=== PATIENT | female | born 1990 | race Caucasian/White ===

== ENCOUNTER 2021-07-15 16:49 | Emergency (ER) | payer OTHER, SELFPAY ==
--- NOTE | ~2021-07-15 | XR_ITS ---
XR knee RT min 4V DATE: 07/15/2021 17:27 INDICATION: Struck knee on safe at work. Anterior knee pain. TECHNIQUE: 4 views COMPARISON: None FINDINGS: There is particular spurring of the patella and lateral compartment consistent with osteoar thritis. No fracture or dislocation or joint effusion. No periosteal reaction or bone destruction. No radiopaq ue intra-articular loose body or chondrocalcinosis. IMPRESSION: Osteoarthritis Reviewed, dictated and finalized at location A. IMPRESSION: Osteoarthritis
[2021-07-15 17:01] VITALS: BP 122/64; PULSE 96; RESP 18; TEMP 36.7; O2SAT 100
--- NOTE | 2021-07-15 17:30 | ED.LOWEXIN ---
HPI - Extremity Injury (Lower) General Chief Complaint: Extremity Injury, Lower Stated Complaint: Right Knee Pain Time Seen by Provider: 07/15/21 17:29 Source: patient and RN notes reviewed Mode of arrival: ambulatory Limitations: no limitations History of Present Illness HPI Narrative: Patient presents today complaining of right knee pain. States she struck her knee into the large safe at work twice this week, causing pain to her lateral knee. Denies numbness or tingling in the knee or leg. She currently rates her pain 6/10 and has been taking naproxen with some relief. Pain increases with weightbearing. complaint: knee injury Related Data Home Medications Medication Instructions Recorded Confirmed [id number] alafen 1 tablet PO DAILY 07/15/21 07/15/21 [Genvoya] fluoxetine 10 mg PO DAILY 07/15/21 07/15/21 gabapentin 600 mg PO DAILY 07/15/21 07/15/21 lamotrigine 200 mg PO DIRECTED 07/15/21 07/15/21 Allergies Allergy/AdvReac Type Severity Reaction Status Date / Time morphine Allergy Intermediate Rash Verified 07/15/21 17:15 codeine Allergy Mild Rash Verified 07/15/21 17:15 hydroxyzine Allergy Mild NAUSEA Verified 07/15/21 17:15 Penicillins Allergy Mild RASH Verified 07/15/21 17:15 erythromycin base Allergy Unknown Swelling Unverified 07/15/21 17:15 ZIPRASIDONE HCL Allergy Unknown Swelling Uncoded 07/15/21 17:15 of Lip/Tongue/Throat Review of Systems Review of Systems: CONSTITUTIONAL: Denies body aches, fever, chills, or sweats. EYES: Denies visual changes, redness, or discharge. ENT: Denies rhinorrhea, congestion, sore throat, or otalgia. CARDIOVASCULAR: Denies chest pain, palpitations, or edema. RESPIRATORY: Denies cough or dyspnea. GASTROINTESTINAL: Denies abdominal pain, nausea, vomiting, or diarrhea. GENITOURINARY: Denies dysuria or hematuria. SKIN: Denies rash, itching, or wounds. MUSCULOSKELETAL: Denies back pain, or myalgia. + Right knee injury NEUROLOGIC: Denies headache, numbness, tingling, or weakness. PSYCH: Denies depression or anxiety. [facility] Past Medical History Medical History (Updated 07/15/21 @ 18:31 by Ashley Jeter, [employer], ) Bipolar disorder HIV (human immunodeficiency virus infection) Surgical History Surgical History (Updated 07/15/21 @ 17:33 by Ashley Jeter, [facility], ) History of appendectomy Comments At time of signature, I have reviewed and agree with nursing past medical, surgical, social and family history unless otherwise noted. Please see nursing chart for further information. There is no relevant family history pertinent to the presenting complaint Exam Narrative: GENERAL: Well-appearing, well-nourished, and in no acute distress. HEAD: Normocephalic, atraumatic. EYES: EOMI. No redness or drainage. Conjunctivae normal. ENT: Mucous membranes pink and moist. NECK: Normal AROM. CHEST: No respiratory distress. EXTREMITIES: Right knee: Tenderness to the lateral joint line. Patella is nontender. No edema to the knee. No ecchymosis or erythema. No abnormal movement of the patella. No tenderness to the patellar tendon. Some pain with internal rotation of the foot. Distal sensation intact. Capillary refill normal. Posterior tibial pulse normal. SKIN: Warm, dry, no rash. Capillary refill normal. Normal skin turgor. NEURO: No focal deficits. Alert and oriented x3. Gait steady. PSYCH: Normal affect. No signs of depression or anxiety. Course Vital Signs Vital signs: Vital Signs Temperature 98.0 F 07/15/21 17:01 Pulse Rate 96 07/15/21 17:01 Respiratory Rate 18 07/15/21 17:01 Blood Pressure 122/64 07/15/21 17:01 Pulse Oximetry 100 07/15/21 17:01 Temperature 98.0 F 07/15/21 17:01 Pulse Rate 96 07/15/21 17:01 Respiratory Rate 18 07/15/21 17:01 Blood Pressure 122/64 07/15/21 17:01 Pulse Oximetry 100 07/15/21 17:01 Reviewed. Pt has been instructed to follow up with her PCP regarding her elevated bloo
== END 2021-07-15 18:40 | disposition home or self-care (01) ==
PROVIDERS: Emergency Provider Nurse Practitioner; PCP Internal Medicine Infectious Disease
DX: S89.91XA Unspecified injury of right lower leg, initial encounter (principal); W22.8XXA Striking against or struck by other objects, initial encounter; Y99.0 Civilian activity done for income or pay; F31.9 Bipolar disorder, unspecified; Z21 Asymptomatic human immunodeficiency virus [HIV] infection status
CPT/HCPCS: 73564; 99213; G0463

== ENCOUNTER 2022-01-16 16:33 | Emergency (ER) | payer OTHER, SELFPAY ==
--- NOTE | 2022-01-16 16:56 | ED.FEMALEGU ---
HPI - Female Genitourinary General Chief complaint: Urogenital-Female Stated complaint: uti/abd pain Time Seen by Provider: 01/16/22 17:00 Source: patient Mode of arrival: ambulatory Limitations: no limitations History of Present Illness HPI Narrative: Ms. Burdick is a 31-year-old female patient presenting to the clinic today with complaints of left-sided flank pain, lower abdominal pain, and some blood with urination that began today. She does report that she has felt feverish and has had some chills. She has a history of kidney infections in the past. She denies any vaginal discharge. Related Data Home Medications Medication Instructions Recorded Confirmed [id number]-[id number]-[id number]-tenof alafen 1 tablet PO DAILY 07/15/21 07/15/21 [Genvoya] fluoxetine 10 mg PO DAILY 07/15/21 07/15/21 Otc Sleep Med. 01/16/22 naproxen 01/16/22 Allergies Allergy/AdvReac Type Severity Reaction Status Date / Time morphine Allergy Intermediate Rash Verified 07/15/21 17:15 codeine Allergy Mild Rash Verified 07/15/21 17:15 hydroxyzine Allergy Mild NAUSEA Verified 07/15/21 17:15 Penicillins Allergy Mild RASH Verified 07/15/21 17:15 erythromycin base Allergy Unknown Swelling Unverified 07/15/21 17:15 ZIPRASIDONE HCL Allergy Unknown Swelling Uncoded 07/15/21 17:15 of Lip/Tongue/Throat Review of Systems Review of Systems: Pertinent positives per HPI. Patient denies any rash, headache, visual changes, dizziness, cough, runny nose, sore throat, shortness of breath, chest pain, palpitations, nausea, vomiting, diarrhea, or constipation. PMFSH Past Medical History Medical History Bipolar disorder HIV (human immunodeficiency virus infection) Surgical History Surgical History History of appendectomy Comments At the time of my signature, I reviewed and agree with the nursing past medical, surgical, social, and family history. There is no relevant family history pertinent to the patient complaint. Exam Narrative: General: Well-developed, well nourished, in no apparent distress. Head: Normocephalic, atraumatic. Cardio: Regular rate and rhythm, s1 and s2 normal, no murmur appreciated. Resp: Clear to auscultation bilaterally, no rhonchi, rales, wheezing or rubs. Abdomen: Soft, pliable, bowel sounds present in all quadrants, tender to palpation to the lower abdomen as well as over the suprapubic area, no organomegly, positive left CVAT tenderness. Course Course Emergency Course: Portions of this record may have been created with voice recognition software. Level of Care: Express Care Visit Vital Signs Vital signs: Vital Signs Temperature 36.6 C 01/16/22 16:58 Pulse Rate 94 01/16/22 16:58 Respiratory Rate 16 01/16/22 16:58 Blood Pressure 156/106 H 01/16/22 16:58 Pulse Oximetry 99 01/16/22 16:58 Temperature 36.6 C 01/16/22 16:58 Pulse Rate 94 01/16/22 16:58 Respiratory Rate 16 01/16/22 16:58 Blood Pressure 156/106 H 01/16/22 16:58 Pulse Oximetry 99 01/16/22 16:58 Vital signs reviewed MDM - Female Genitourinary MDM Narrative Medical decision making narrative: At the time of visit patient is resting comfortably on the exam table. UA was obtained and she was positive for leukocytes and nitrates. She has lower abdominal pain as well at the left flank pain. I suspect that the patient has acute cystitis with possible early pyelonephritis. There were no protein in her urine at this time. I will treat her with a course of Bactrim DS. Supportive measures were discussed with the patient she voiced understanding of discharge instructions and agrees to treatment plan. Her blood pressure was elevated today in the clinic and I also discussed this with her and will have her follow-up with her PCP regarding this Differential Diagnosis Differential diagnosis: Likely urinary tract infectio
[2022-01-16 16:58] VITALS: BP 156/106; PULSE 94; RESP 16; TEMP 36.6; O2SAT 99
== END 2022-01-16 17:12 | disposition home or self-care (01) ==
PROVIDERS: Emergency Provider Nurse Practitioner Family
DX: N39.0 Urinary tract infection, site not specified (principal)
CPT/HCPCS: 81003; 87077; 87086; 87186; 99213; G0463

== ENCOUNTER 2022-05-02 16:51 | Emergency (ER) | payer OTHER, SELFPAY ==
[2022-05-02 16:58] VITALS: BP 111/79; PULSE 75; RESP 20; TEMP 36.2; O2SAT 100
--- NOTE | 2022-05-02 17:00 | ED.GENADULT ---
HPI - General Adult General Chief complaint: Upper Respiratory Infection Stated complaint: cough/diarrhea Time Seen by Provider: 05/02/22 17:00 Source: patient and RN notes reviewed Mode of arrival: ambulatory Limitations: no limitations History of Present Illness HPI narrative: 31-year-old female presents to the [facility] with complaints of cough and intermittent wheezing for 2 weeks. Patient is a smoker and a vapor. Denies CP, or abd pain. Denies fevers. HX of Bronchitis. Has an appointment with PCM coming up next week to discuss Chronic Diarrhea issues. Related Data Home Medications Medication Instructions Recorded Confirmed elviteg 150 mg-cob 150 mg-emtricit 1 tablet PO DAILY 05/02/22 05/02/22 200 mg-tenofo alafenam 10 mg tablet (Genvoya) gabapentin 600 mg tablet 600 mg PO DAILY 05/02/22 05/02/22 quetiapine 50 mg tablet 50 mg PO DAILY 05/02/22 05/02/22 sertraline 25 mg tablet 25 mg PO DAILY 05/02/22 05/02/22 Allergies Allergy/AdvReac Type Severity Reaction Status Date / Time morphine Allergy Intermediate Rash Verified 05/02/22 16:59 codeine Allergy Mild Rash Verified 05/02/22 16:59 hydroxyzine Allergy Mild NAUSEA Verified 05/02/22 16:59 Penicillins Allergy Mild RASH Verified 05/02/22 16:59 erythromycin base Allergy Unknown Swelling Verified 05/02/22 16:59 ZIPRASIDONE HCL Allergy Unknown Swelling Uncoded 05/02/22 16:59 of Lip/Tongue/Throat Review of Systems Review of Systems: All systems reviewed & are unremarkable except as noted in HPI and below Constitutional: Constitutional: Reports no additional constitutional complaints, Denies chills and Denies fever(s) Eyes: Eyes: Reports no additional eye complaints ENT: Reports system reviewed and no additional complaints, except as documented Cardiovascular: Cardiovascular: Reports no additional cardiovascular complaints Respiratory: Respiratory: Reports as per HPI, Reports chest congestion, Reports cough, Reports dyspnea and Reports wheezing Gastrointestinal: Gastrointestinal: Reports no additional gastrointestinal complaints Musculoskeletal: Musculoskeletal: Reports no additional musculoskeletal complaints Integumentary/Breasts: Skin/Breast: Reports system reviewed and no additional complaints, except as docu Neurologic: Reports system reviewed and no additional complaints, except as documented Psychiatric: Psychiatric: Reports no additional psychiatric complaints Allergic/Immunologic: Allergic/Immunologic: Reports no additional allergic/immunologic complaints PMFSH Past Medical History Medical History Bipolar disorder HIV (human immunodeficiency virus infection) Surgical History Surgical History History of appendectomy Comments At the time of my signature, I reviewed and agree with the nursing past medical, surgical, social, and family history. There is no relevant family history pertinent to the patient complaint. Exam Const: General: healthy appearing, no acute distress and alert Nutritional Appearance: well nourished and obese Orientation/consciousness: patient oriented x3 Limitations: no limitations HENMT: Head: normal to inspection Ears: external ears normal, TM's normal bilaterally and EAC's normal General nose exam: Normal external nose present Throat: posterior oropharynx normal and uvula midline Eyes: General: appearance normal, both eyes and all related structures Pupils: Equal, round and reactive pupils present Neck: Neck: normal visual inspection, no lymphadenopathy and no meningeal signs Chest: Chest palpation & inspection: normal inspection of the chest Resp: Effort & Inspection: normal respiratory effort and no use of accessory muscles Auscultation: clear to auscultation bilaterally, no crackles, no rales, no rhonchi and wheezes throughout Cardio: Rate: regular rate Rhythm: regular rhythm Back/S
== END 2022-05-02 17:35 | disposition home or self-care (01) ==
PROVIDERS: Emergency Provider Nurse Practitioner
DX: J40 Bronchitis, not specified as acute or chronic (principal); F31.9 Bipolar disorder, unspecified; Z21 Asymptomatic human immunodeficiency virus [HIV] infection status; F17.200 Nicotine dependence, unspecified, uncomplicated; F17.290 Nicotine dependence, other tobacco product, uncomplicated
CPT/HCPCS: 99213; G0463

== ENCOUNTER 2022-07-12 11:13 | Emergency (ER) | payer OTHER, SELFPAY ==
[2022-07-12 11:24] VITALS: BP 123/74; PULSE 96; RESP 16; TEMP 36.7; O2SAT 98
--- NOTE | 2022-07-12 12:17 | ED.NAVMDI ---
HPI - Nausea/Vomiting/Diarrhea General Chief complaint: Nausea/Vomiting/Diarrhea Stated complaint: abd pain Time Seen by Provider: 07/12/22 12:18 Source: patient and RN notes reviewed Mode of arrival: ambulatory Limitations: no limitations History of Present Illness HPI Narrative: 31-year-old female presents to the [facility] with complaints of nausea, diarrhea since yesterday. Reports that most of her work as out with a gastritis. Has taken Imodium for the diarrhea yesterday denies abdominal pain. Reports that right before she has diarrhea she developed some abdominal cramping. Denies fevers, chest pain. Related Data Home Medications Medication Instructions Recorded Confirmed elviteg 150 mg-cob 150 mg-emtricit 1 tablet PO DAILY 05/02/22 07/12/22 200 mg-tenofo alafenam 10 mg tablet (Genvoya) gabapentin 600 mg tablet 600 mg PO DAILY 05/02/22 07/12/22 Allergies Allergy/AdvReac Type Severity Reaction Status Date / Time morphine Allergy Intermediate Rash Verified 05/02/22 16:59 codeine Allergy Mild Rash Verified 05/02/22 16:59 hydroxyzine Allergy Mild NAUSEA Verified 05/02/22 16:59 Penicillins Allergy Mild RASH Verified 05/02/22 16:59 erythromycin base Allergy Unknown Swelling Verified 05/02/22 16:59 ZIPRASIDONE HCL Allergy Unknown Swelling Uncoded 05/02/22 16:59 of Lip/Tongue/Throat Review of Systems Review of Systems: All systems reviewed & are unremarkable except as noted in HPI and below Constitutional: Constitutional: Reports no additional constitutional complaints, Denies chills and Denies fever(s) Eyes: Eyes: Reports no additional eye complaints ENT: Reports system reviewed and no additional complaints, except as documented Cardiovascular: Cardiovascular: Reports no additional cardiovascular complaints Respiratory: Respiratory: Reports no additional respiratory complaints Gastrointestinal: Gastrointestinal: Reports as per HPI, Denies abdominal pain, Reports diarrhea, Reports nausea and Denies vomiting Musculoskeletal: Musculoskeletal: Reports no additional musculoskeletal complaints Integumentary/Breasts: Skin/Breast: Reports system reviewed and no additional complaints, except as docu Neurologic: Reports system reviewed and no additional complaints, except as documented Psychiatric: Psychiatric: Reports no additional psychiatric complaints Allergic/Immunologic: Allergic/Immunologic: Reports no additional allergic/immunologic complaints PMFSH Past Medical History Medical History Bipolar disorder HIV (human immunodeficiency virus infection) Surgical History Surgical History History of appendectomy Comments At the time of my signature, I reviewed and agree with the nursing past medical, surgical, social, and family history. There is no relevant family history pertinent to the patient complaint. Exam Const: General: healthy appearing, no acute distress, alert and well nourished Nutritional Appearance: well nourished and obese morbidly obese Orientation/consciousness: patient oriented x3 Limitations: no limitations HENMT: Head: normal to inspection Ears: external ears normal Eyes: General: appearance normal, both eyes and all related structures Pupils: Equal, round and reactive pupils present Neck: Neck: normal visual inspection, no lymphadenopathy and no meningeal signs Chest: Chest palpation & inspection: normal inspection of the chest Resp: Effort & Inspection: normal respiratory effort and no use of accessory muscles Auscultation: clear to auscultation bilaterally, no crackles, no rales, no rhonchi and no wheezes Cardio: Rate: regular rate Rhythm: regular rhythm GI: GI Palp: Yes Soft to palpation, No Tenderness to palpation present (GI) and No Guarding due to palpation present (GI) Back/Spine/Pelvis: Cervical Spine: normal cervical lordosis Thoracic/Lumba
== END 2022-07-12 12:33 | disposition home or self-care (01) ==
PROVIDERS: Emergency Provider Nurse Practitioner; PCP Internal Medicine Infectious Disease
DX: K52.9 Noninfective gastroenteritis and colitis, unspecified (principal)
CPT/HCPCS: 99213; G0463

== ENCOUNTER 2023-05-22 13:18 | Emergency (ER) | payer OTHER, SELFPAY ==
[2023-05-22 13:31] VITALS: BP 134/79; PULSE 84; RESP 20; TEMP 36.9; O2SAT 98
--- NOTE | 2023-05-22 13:58 | ED.URI ---
HPI - URI/Sore Throat General Chief Complaint: Upper Respiratory Infection Stated Complaint: Cough Time Seen by Provider: 05/22/23 13:59 Source: patient Mode of arrival: ambulatory Limitations: no limitations History of Present Illness HPI Narrative: 32-year-old female with a history of asthma and HIV presented for complaint of productive cough worsening over the past week. endorses fatigue and sob with heavy exertion, and nasal drainage. States she used her father's neb machine just [employer]. Patient has reduced smoking from 2ppd at the beginning of the year, down to about 1/2ppd. Not taking anything for symptoms. Related Data Home Medications Medication Instructions Recorded Confirmed elviteg 150 mg-cob 150 mg-emtricit 1 tablet PO DAILY 05/02/22 05/22/23 200 mg-tenofo alafenam 10 mg tablet (Genvoya) gabapentin 600 mg tablet 600 mg PO DAILY 05/02/22 05/22/23 Allergies Allergy/AdvReac Type Severity Reaction Status Date / Time morphine Allergy Intermediate Rash Verified 05/02/22 16:59 codeine Allergy Mild Rash Verified 05/02/22 16:59 hydroxyzine Allergy Mild NAUSEA Verified 05/02/22 16:59 Penicillins Allergy Mild RASH Verified 05/02/22 16:59 erythromycin base Allergy Unknown Swelling Verified 05/02/22 16:59 ZIPRASIDONE HCL Allergy Unknown Swelling Uncoded 05/02/22 16:59 of Lip/Tongue/Throat Review of Systems Review of Systems: CONSTITUTIONAL: Denies body aches, fever, chills, or sweats. EYES: Denies visual changes, redness, or discharge. ENT: Denies rhinorrhea, congestion, sore throat, or otalgia. CARDIOVASCULAR: Denies chest pain, palpitations, or edema. RESPIRATORY: Reports cough, sob, wheezing. GASTROINTESTINAL: Denies abdominal pain, nausea, vomiting, or diarrhea. GENITOURINARY: Denies dysuria or hematuria. SKIN: Denies rash, itching, or wounds. MUSCULOSKELETAL: Denies back pain, joint pain, or myalgia. NEUROLOGIC: Denies headache, numbness, tingling, or weakness. PSYCH: Denies depression or anxiety. All systems reviewed & are unremarkable except as noted in HPI and below PMFSH Past Medical History Medical History Bipolar disorder HIV (human immunodeficiency virus infection) Surgical History Surgical History History of appendectomy Comments At time of signature, I have reviewed and agree with nursing past medical, surgical, social and family history unless otherwise noted. Please see nursing chart for further information. There is no relevant family history pertinent to the presenting complaint Exam Narrative: GENERAL: mildly ill-appearing, in no acute distress. EYES: EOMI. No redness or drainage. Conjunctivae normal. ENT: Mucous membranes pink and moist. No rhinorrhea. TMs normal bilaterally. Throat normal. Uvula midline. NECK: Normal AROM. Supple. CHEST: No respiratory distress. Wheezing and coarse throughout all isidro. cough is moist and productive HEART: Regular rate and rhythm. No murmur appreciated. ABDOMEN: Soft, nontender, nondistended, normal active bowel sounds. EXTREMITIES: Normal range of motion. No edema. SKIN: Warm, dry, no rash. Capillary refill normal. Normal skin turgor. NEURO: Alert and oriented x3. Gait steady. PSYCH: Normal affect. Course Course Emergency Course: Patient is aware of diagnosis, understands and agrees to treatment plan. Anticipatory guidance given. Patient agrees to follow-up as directed and is aware of reasons to seek care at the emergency department. Portions of this record may have been created with voice recognition software Level of Care: Express Care Visit Vital Signs Vital signs: Vital Signs Temperature 98.4 F 05/22/23 13:31 Pulse Rate 84 05/22/23 13:31 Respiratory Rate 20 05/22/23 13:31 Blood Pressure 134/79 05/22/23 13:31 Pulse Oximetry 98 05/22/23 13:31 Oxygen Delivery Room Air
== END 2023-05-22 14:13 | disposition home or self-care (01) ==
PROVIDERS: Emergency Provider Nurse Practitioner Family; PCP Internal Medicine Infectious Disease
DX: J40 Bronchitis, not specified as acute or chronic (principal); F17.200 Nicotine dependence, unspecified, uncomplicated; J45.909 Unspecified asthma, uncomplicated; Z21 Asymptomatic human immunodeficiency virus [HIV] infection status
CPT/HCPCS: 99213; G0463

== ENCOUNTER 2023-09-11 16:05 | Emergency (ER) | payer OTHER, SELFPAY ==
[2023-09-11 16:21] VITALS: BP 144/82; PULSE 89; RESP 18; TEMP 36.4; O2SAT 100
--- NOTE | 2023-09-11 16:32 | ED.GENADULT ---
HPI - General Adult General Chief complaint: Upper Respiratory Infection Stated complaint: cough,nausea,sob Source: patient, RN notes reviewed and old records reviewed Mode of arrival: ambulatory Limitations: no limitations History of Present Illness HPI narrative: 32-year-old female presents to [facility] with complaints sore throat, myalgia, fatigue, congestion, cough, shortness of breathe, fever, and rash this started 1-2 days ago. Patient has not been taking anything for symptoms. Patient denies chest pain, weakness, dizziness, wheezing MD complaint: flu-like symptoms Onset (ago): day(s) (1-2) Related Data Home Medications Medication Instructions Recorded Confirmed elviteg 150 mg-cob 150 mg-emtricit 1 tablet PO DAILY 05/02/22 05/22/23 200 mg-tenofo alafenam 10 mg tablet (Genvoya) gabapentin 600 mg tablet 600 mg PO DAILY 05/02/22 05/22/23 Allergies Allergy/AdvReac Type Severity Reaction Status Date / Time morphine Allergy Intermediate Rash Verified 05/02/22 16:59 codeine Allergy Mild Rash Verified 05/02/22 16:59 hydroxyzine Allergy Mild NAUSEA Verified 05/02/22 16:59 Penicillins Allergy Mild RASH Verified 05/02/22 16:59 erythromycin base Allergy Unknown Swelling Verified 05/02/22 16:59 ZIPRASIDONE HCL Allergy Unknown Swelling Uncoded 05/02/22 16:59 of Lip/Tongue/Throat Review of Systems Constitutional: Constitutional: Reports no additional constitutional complaints, Reports body ache(s), Denies chills, Reports fatigue, Reports fever(s) and Denies headache(s) Eyes: Eyes: Reports no additional eye complaints and Denies blurry vision ENT: Reports system reviewed and no additional complaints, except as documented, Denies vertigo, Denies dizziness, Denies ear discharge, Denies otalgia, Denies facial pain, Denies headache(s), Reports nasal congestion, Denies nasal discharge, Denies sinus pain, Reports sinus pressure and Reports sore throat Cardiovascular: Cardiovascular: Reports no additional cardiovascular complaints, Denies chest pain, Denies chest pain at rest, Denies rapid heart rate and Reports dyspnea Respiratory: Respiratory: Reports no additional respiratory complaints, Denies chest congestion, Reports cough, Denies pain on inspiration, Denies pain with cough and Reports dyspnea Gastrointestinal: Gastrointestinal: Denies abdominal pain, Denies diarrhea, Denies nausea and Denies vomiting Integumentary/Breasts: Skin/Breast: Reports rash Neurologic: Reports system reviewed and no additional complaints, except as documented, Denies vertigo, Denies dizziness and Denies headache(s) Endocrine: Endocrine: Denies fatigue PMFSH Past Medical History Medical History Bipolar disorder HIV (human immunodeficiency virus infection) Surgical History Surgical History History of appendectomy Comments At the time of my signature, I reviewed and agree with the nursing past medical, surgical, social, and family history. There is no relevant family history pertinent to the patient complaint. Exam Const: General: cooperative, no acute distress, ill appearing acutely and well nourished Nutritional Appearance: well nourished Orientation/consciousness: patient oriented x3 Limitations: no limitations HENMT: Head: normal to inspection and normocephalic Ears: external ears normal, TM's normal bilaterally, mastoids normal and Abnormal EAC present Face/Nose/Sinus: normal facial exam Face and sinus: normal facial exam Mouth: Yes Normal oral and palatal mucosa present, Yes oropharynx normal and Yes moist mucous membranes Throat: tonsils normal, uvula midline, posterior oropharynx abnormal erythema and no uvular edema Eyes: General: appearance normal, both eyes and all related structures Sclera: sclerae normal Pupils: Equal, round and reactive pupils present Resp: Effort & Inspection: normal respirat
== END 2023-09-11 16:49 | disposition home or self-care (01) ==
PROVIDERS: Emergency Provider Registered Nurse; PCP Internal Medicine Infectious Disease
DX: J10.1 Influenza due to other identified influenza virus with other respiratory manifestations (principal); B09 Unspecified viral infection characterized by skin and mucous membrane lesions; Z20.822 Contact with and (suspected) exposure to COVID-19; Z21 Asymptomatic human immunodeficiency virus [HIV] infection status
CPT/HCPCS: 87081; 87426; 87804; 87880; 99213; C9803; G0463

== ENCOUNTER 2023-10-07 21:17 | Emergency (ER) | payer OTHER, SELFPAY ==
--- NOTE | ~2023-10-07 | XR_ITS ---
EXAMINATION: XR chest 2V 10/07/2023 22:09 INDICATION: Chest pain PROCEDURE: 2 view chest COMPARISON: 02/20/2014 FINDINGS: The lungs are clear. The cardiomediastinal silhouette is within normal limits. There are no pleural effusions. There is no pneumothorax suspected. IMPRESSION: 1: NO ACUTE CARDIOPULMONARY DISEASE. Reviewed, dictated and finalized at location [facility]
--- NOTE | 2023-10-07 21:18 | ECG_ITS ---
Measurements Intervals [place] Rate: 92 P: 39 AL: 160 QRS: 14 QRSD: 87 T: 40 QT: 342 QTc: 424 Interpretive Statements SINUS RHYTHM CANNOT RULE OUT SEPTAL INFARCT, AGE INDETERMINATE ABNORMAL ECG NO PREVIOUS ECG AVAILABLE FOR COMPARISON Electronically Signed On 10-08-2023 8:08:18 [employer] by Bashir Barillas D.O.
[2023-10-07 21:24] VITALS: BP 138/89; PULSE 89; RESP 16; TEMP 36.7; O2SAT 98
[2023-10-07 21:36] LABS: Basophils Percent Auto 0.7 % (0.2-1.2); Eosinophils Absolute Auto 0.2 K/mm3 (0-0.3); Eosinophils Percent Auto 4.2 % (0-4.4); Hematocrit 37.5 % (37.0-47.0); Hemoglobin 12.6 g/dL (12.0-15.0); Immature Granulocyte Absolute 0.01 K/mm3 (0.00-0.031); Immature Granulocyte Percent A 0.2 % (0-0.5); Lymphocytes Absolute Auto 1.81 K/mm3 (0.9-3.2); Lymphocytes Percent Auto 33.3 % (18.3-44.2); Mean Corpuscular HGB Conc 33.6 g/dl (32-36); Mean Corpuscular Hemoglobin 31.5 pg (26-34); Mean Corpuscular Volume 93.8 fl (80-100); Monocytes Absolute Auto 0.4 K/mm3 (0.1-0.6); Monocytes Percent Auto 6.6 % (2.6-8.5); Platelet Count Result 203 k/mm3 (150-375); Red Cell Distribution Width 13.1 % (11.5-14.5); White Blood Count 5.4 K/mm3 (4.5-10.0)
[2023-10-07 21:48] LABS: Alanine Aminotransferase 21 U/L (6-35); Albumin Level 3.8 g/dL (3.5-5.1); Alkaline Phosphatase 66 U/L (38-126); Anion Gap 7 mmol/L (8-16); Aspartate Amino Transferase 22 U/L (14-36); Bilirubin,Total 0.2 mg/dL (0.2-1.3); Blood Urea Nitrogen 15 mg/dL (7-17); Calcium 8.3 mg/dL (8.4-10.2); Carbon Dioxide 25 mmol/L (22-30); Chloride 108 mmol/L (98-107); Estimated CRCL calculation 96 ml/min; Estimated Glomerular Filt Rate > 60; Glucose 101 mg/dL (65-110); INR 0.9; Lipase 94 U/L (23-300); Prothrombin Time 12.5 Seconds (11.1-14.7); Sodium 140 mmol/L (137-145)
[2023-10-07 21:49] LABS: Partial Thromboplastin Time 27.1 SECONDS (22.3-36.8)
[2023-10-07 21:59] LABS: Troponin I < 0.012 ng/mL (0.000-0.034)
[2023-10-07 22:24] VITALS: O2SAT 97
[2023-10-07 22:25] VITALS: BP 146/100; PULSE 75; RESP 18; O2SAT 97
[2023-10-08 01:01] LABS: Troponin I < 0.012 ng/mL (0.000-0.034)
--- NOTE | 2023-10-08 01:05 | ED.GENADULT ---
HPI - General Adult General Chief complaint: Chest Pain Stated complaint: chest pain Time Seen by Provider: 10/07/23 22:53 History of Present Illness HPI narrative: patient 32-year-old female who presents emergency department with chief complaint of left-sided chest pain. Patient reports that she has had little bit of shortness of breath with it patient reports the pain is a sharp type pain patient reports the pain is worse with inspiration and worse with movement. Related Data Home Medications Medication Instructions Recorded Confirmed elviteg 150 mg-cob 150 mg-emtricit 1 tablet PO DAILY 05/02/22 05/22/23 200 mg-tenofo alafenam 10 mg tablet (Genvoya) gabapentin 600 mg tablet 600 mg PO DAILY 05/02/22 05/22/23 Allergies Allergy/AdvReac Type Severity Reaction Status Date / Time morphine Allergy Intermediate Rash Verified 10/07/23 21:17 codeine Allergy Mild Rash Verified 10/07/23 21:17 hydroxyzine Allergy Mild NAUSEA Verified 10/07/23 21:17 Penicillins Allergy Mild RASH Verified 10/07/23 21:17 erythromycin base Allergy Unknown Swelling Verified 10/07/23 21:17 ZIPRASIDONE HCL Allergy Unknown Swelling Uncoded 10/07/23 21:17 of Lip/Tongue/Throat Review of Systems Review of Systems: A 10 system review of systems was completed on the patient and is negative except for what is stated in the HPI. Nursing and ancillary documentation was reviewed. PMFSH Past Medical History Medical History Bipolar disorder HIV (human immunodeficiency virus infection) Surgical History Surgical History History of appendectomy Exam Narrative: GENERAL: Well-appearing, well-nourished, and in no acute distress. HEAD: Normocephalic, atraumatic. EYES: PERRLA and EOMI. ENT: Nares clear, no rhinorrhea or epistaxis. Mucous membranes moist. NECK: Supple. CHEST: Clear to auscultation. No respiratory distress. HEART: Regular rate and rhythm. No murmur heard. Normal peripheral pulses. ABDOMEN: Soft, nontender, nondistended, normal active bowel sounds. EXTREMITIES: Normal range of motion. No edema. SKIN: Warm, dry, no rash. NEURO: No focal deficits. Alert and oriented x3. PSYCH: Normal mood and affect. Course Vital Signs Vital signs: Vital Signs Temperature 36.7 C 10/07/23 21:24 Pulse Rate 89 10/07/23 21:24 Respiratory Rate 16 10/07/23 21:24 Blood Pressure 138/89 10/07/23 21:24 Pulse Oximetry 98 10/07/23 21:24 Oxygen Delivery Room Air 10/07/23 21:24 Temperature 36.7 C 10/07/23 21:24 Pulse Rate 75 10/07/23 22:25 Respiratory Rate 18 10/07/23 22:25 Blood Pressure 146/100 H 10/07/23 22:25 Pulse Oximetry 97 10/07/23 22:25 Oxygen Delivery Room Air 10/07/23 22:24 Medical Decision Making MDM Narrative Medical decision making narrative: Differential diagnosis includes ACS, pneumothorax, electrolyte abnormality, gastroesophageal reflux disease, anxiety laboratory studies were obtained on the patient showed normal CBC normal CMP lipase is normal troponin is negative on 0 hour and 3 hour EKG is normal sinus with a rate of [address] elevation or ST depression Vital Signs Vital Signs: Vital Signs Temperature 36.7 C 10/07/23 21:24 Pulse Rate 89 10/07/23 21:24 Respiratory Rate 16 10/07/23 21:24 Blood Pressure 138/89 10/07/23 21:24 Pulse Oximetry 98 10/07/23 21:24 Oxygen Delivery Room Air 10/07/23 21:24 Temperature 36.7 C 10/07/23 21:24 Pulse Rate 75 10/07/23 22:25 Respiratory Rate 18 10/07/23 22:25 Blood Pressure 146/100 H 10/07/23 22:25 Pulse Oximetry 97 10/07/23 22:25 Oxygen Delivery Room Air 10/07/23 22:24 Lab Data 10/07/23 21:28 10/07/23 21:28 Labs: Lab Results 10/07/23 10/08/23 Range/Units 21:28 00:24 WBC 5.4 (4.5-10.0) K/mm3 RBC 4.00 L
[2023-10-08 01:12] VITALS: BP 155/100; PULSE 76; RESP 15; O2SAT 96
== END 2023-10-08 01:20 | disposition home or self-care (01) ==
PROVIDERS: Emergency Provider Emergency Medicine; PCP Internal Medicine Infectious Disease
DX: R07.89 Other chest pain (principal); Z21 Asymptomatic human immunodeficiency virus [HIV] infection status; Z79.899 Other long term (current) drug therapy
CPT/HCPCS: 36415; 71046; 80053; 83690; 84484; 85025; 85610; 85730; 93005; 99284

== ENCOUNTER 2023-11-02 16:13 | Emergency (ER) | payer OTHER, SELFPAY ==
--- NOTE | ~2023-11-02 | XR_ITS ---
EXAMINATION: XR knee RT min 4V DATE: 11/02/2023 16:42 INDICATION: Right knee pain. TECHNIQUE: 5 views of right knee were obtained. COMPARISON: Right knee radiographs 07/15/2021 FINDINGS: Bone alignment is normal. No fracture. There is a benign bone island in proximal tibia. The re is mild tricompartmental osteoarthritis. There is a small knee joint effusion. IMPRESSION: 1. Mild right knee osteoarthritis. 2. Small right knee joint effusion. Reviewed, dictated and finalized at location [facility]
--- NOTE | 2023-11-02 16:14 | ED.EXTPRO ---
HPI - Extremity Problem General Chief complaint: Extremity Injury, Lower Stated complaint: Right Knee Pain Time Seen by Provider: 11/02/23 16:13 Source: patient Mode of arrival: ambulatory Limitations: no limitations History of Present Illness HPI Narrative: Vanessa is a 32-year-old female patient presenting to the clinic today with complaints right knee pain and swelling x3 weeks. 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 States that she felt some popping in her knee. Is having pain mostly when she is trying to rest her knee.-states the pain is a throbbing pain at that time. When she gets up and moves around on the knee it is less painful. Related Data Home Medications Medication Instructions Recorded Confirmed elviteg 150 mg-cob 150 mg-emtricit 1 tablet PO DAILY 05/02/22 11/02/23 200 mg-tenofo alafenam 10 mg tablet (Genvoya) gabapentin 600 mg tablet 600 mg PO DAILY 05/02/22 11/02/23 Allergies Allergy/AdvReac Type Severity Reaction Status Date / Time morphine Allergy Intermediate Rash Verified 11/02/23 16:14 codeine Allergy Mild Rash Verified 11/02/23 16:14 hydroxyzine Allergy Mild NAUSEA Verified 11/02/23 16:14 Penicillins Allergy Mild RASH Verified 11/02/23 16:14 erythromycin base Allergy Unknown Swelling Verified 11/02/23 16:14 ZIPRASIDONE HCL Allergy Unknown Swelling Uncoded 11/02/23 16:14 of Lip/Tongue/Throat Review of Systems Review of Systems: Pertinent positives per HPI. Patient denies any fever, chills, rash, headache, visual changes, dizziness, cough, runny nose, sore throat, shortness of breath, chest pain, palpitations, nausea, vomiting, diarrhea, constipation, abdominal pain, or any urinary issues. [facility] Past Medical History Medical History Bipolar disorder HIV (human immunodeficiency virus infection) Surgical History Surgical History History of appendectomy Comments At the time of my signature, I reviewed and agree with the nursing past medical, surgical, social, and family history. There is no relevant family history pertinent to the patient complaint. Exam Narrative: General: Well-developed, obese, in no apparent distress Head: Normocephalic, atraumatic. Cardio: Regular rate and rhythm, s1 and s2 normal, no murmur appreciated. Resp: Clear to auscultation bilaterally, no rhonchi, rales, wheezing or rubs. Musculoskeletal: No deformity, tender to palpation over the anterior and medial knee, grossly normal range of motion, mild crepitus felt with flexion and extension of the right knee, muscle strength strong and equal, peripheral pulse strong, no edema, no cyanosis, normal gait and station Course Course Emergency Course: Portions of this record may have been created with voice recognition software. Level of Care: Express Care Visit Vital Signs Vital signs: Vital signs reviewed MDM - Extremity (Nontraumatic) MDM Narrative Medical decision making narrative: At the time of visit patient is resting comfortably on the exam table. Patient appears to be nontoxic. Diagnostics: Right knee x-ray was performed and shows mild osteoarthritis with a small knee joint effusion-no obvious fracture or malalignment. Plan: I suspect patient has mild osteoarthritis with a small joint effusion of the right knee. Prescription for naproxen was sent to the pharmacy. Referral to Ortho was given. Supportive measures were discussed with the patient and they voiced understanding discharge instructions and agrees to treatment plan. Return precautions reviewed Differential Diagnosis Differential diagnosis: Likely gout and other (Knee strain, bursitis, knee pain, acute derangement of knee) Imaging Data Radiologist's impression: ITS Impressions Knee X-Ray 11/02/23 16:42 IMPRESSION: 1. Mild right knee osteoarthriti
[2023-11-02 16:25] VITALS: BP 135/87; PULSE 96; RESP 18; TEMP 36.8; O2SAT 98
== END 2023-11-02 17:15 | disposition home or self-care (01) ==
PROVIDERS: Emergency Provider Nurse Practitioner Family; PCP Internal Medicine Infectious Disease
DX: M25.461 Effusion, right knee (principal); M17.11 Unilateral primary osteoarthritis, right knee; Z79.899 Other long term (current) drug therapy
CPT/HCPCS: 73564; 99213; G0463

== ENCOUNTER 2024-03-12 08:34 | Emergency (ER) | payer OTHER, SELFPAY ==
--- NOTE | 2024-03-12 08:45 | ED.SKABFB ---
HPI - Skin/Abscess/Foreign Bdy General Chief complaint: Skin/Abscess/Foreign Body Stated complaint: Stomach Skin Irritation/Bumps Time Seen by Provider: 03/12/24 09:08 Source: patient and RN notes reviewed Mode of arrival: ambulatory Limitations: no limitations History of Present Illness HPI narrative: 33-year-old female presents with concern for red sores on her abdomen that are draining purulent drainage. She reports spot started 2 weeks ago and have been spreading. Reports they will be tender and draining green purulent drainage. She reports she feels another 1 starting on her lower calf. She denies fever, body aches, chills, sweats. MD complaint: other (red spots) Related Data Home Medications Medication Instructions Recorded Confirmed elviteg 150 mg-cob 150 mg-emtricit 1 tablet PO DAILY 05/02/22 03/12/24 200 mg-tenofo alafenam 10 mg tablet (Genvoya) gabapentin 600 mg tablet 600 mg PO DAILY 05/02/22 03/12/24 Allergies Allergy/AdvReac Type Severity Reaction Status Date / Time morphine Allergy Intermediate Rash Verified 03/12/24 08:50 codeine Allergy Mild Rash Verified 03/12/24 08:50 hydroxyzine Allergy Mild NAUSEA Verified 03/12/24 08:50 Penicillins Allergy Mild RASH Verified 03/12/24 08:50 erythromycin base Allergy Unknown Swelling Verified 03/12/24 08:50 ZIPRASIDONE HCL Allergy Unknown Swelling Uncoded 03/12/24 08:50 of Lip/Tongue/Throat Review of Systems Review of Systems: CONSTITUTIONAL: Denies malaise, chills, sweats, or fever. EYES: Denies redness, or discharge. ENT: Denies rhinorrhea, congestion, swollen lips, swollen tongue CARDIOVASCULAR: Denies chest pain, palpitations, or edema. RESPIRATORY: Denies cough or dyspnea. GASTROINTESTINAL: Denies abdominal pain, nausea, vomiting SKIN: Reports tender red spots with drainage on her abdomen MUSCULOSKELETAL: Denies joint pain or myalgia. NEUROLOGIC: Denies headache. All systems reviewed & are unremarkable except as noted in HPI and below PMFSH Past Medical History Medical History Bipolar disorder HIV (human immunodeficiency virus infection) Surgical History Surgical History History of appendectomy Comments At time of signature, agree with nursing past medical, surgical, social and family history. There is no relevant family history pertinent to the presenting complaint Exam Narrative: GENERAL: Well-appearing, well-nourished, and in no acute distress. HEAD: Normocephalic, atraumatic. EYES: PERRLA, conjunctivae clear, and EOMI. ENT: Mucous membranes moist. Oropharynx without edema, erythema or lesions. NECK: Supple. No lymphadenopathy CHEST: Clear to auscultation. No respiratory distress. HEART: Regular rate and rhythm. SKIN: Warm, dry. Five scabbed erythematous areas, not fluctuant, noted to the bilateral lower abdomen with surrounding erythema without induration NEURO: Alert and oriented x3. PSYCH: Normal mood and affect Course Course Emergency Course: Patient is aware of diagnosis, understands and agrees to treatment plan. Anticipatory guidance given. Patient agrees to follow-up as directed and is aware of reasons to seek care at the emergency department. Portions of this record may have been created with voice recognition software Level of Care: Express Care Visit Vital Signs Vital signs: Reviewed. MDM - Skin/Abscess/Foreign Bdy MDM Narrative Medical decision making narrative: I evaluated this in the express care. History is obtained from patient who is an independent historian and physical exam was performed.? Available medical records were reviewed. ? Exam findings and relevant testing show no acute concerns or changes; patient is non-toxic appearing and is in no distress. No risk factors or findings concerning for epidural abscess, diskitis, vertebral osteomyelitis, cord compression, cauda
[2024-03-12 08:48] VITALS: BP 132/75; PULSE 89; RESP 16; TEMP 36.7; O2SAT 99
[2024-03-12 08:50] VITALS: BP 132/75; PULSE 89; RESP 16; TEMP 36.7; O2SAT 99
== END 2024-03-12 09:28 | disposition home or self-care (01) ==
PROVIDERS: Emergency Provider Nurse Practitioner
DX: L08.9 Local infection of the skin and subcutaneous tissue, unspecified (principal); B96.89 Other specified bacterial agents as the cause of diseases classified elsewhere; Z21 Asymptomatic human immunodeficiency virus [HIV] infection status
CPT/HCPCS: 99213; G0463

== ENCOUNTER 2024-10-18 13:23 | Emergency (ER) | payer OTHER, SELFPAY ==
[2024-10-18 13:42] VITALS: BP 141/87; PULSE 60; RESP 18; TEMP 36.6; O2SAT 100
--- NOTE | 2024-10-18 14:58 | ED_ITS ---
HPI - Dental/Oral General Chief complaint: Dental/Oral Stated complaint: left jaw painful,discharge Time Seen by Provider: 10/18/24 15:02 Source: patient, RN notes reviewed and old records reviewed Mode of arrival: ambulatory Limitations: no limitations History of Present Illness HPI Narrative: Patient presents with complaints of dental pain and associated left-sided facial swelling. She denies any injury or trauma. She does admit that she has longstanding dental issues, has been trying to get these taken care of, but has had some difficulties with her insurance. She is requesting a list of dental providers. She reports that her current symptoms began 2 or 3 days ago, have been worsening. She does report some purulent drainage from the left lower gingiva. She has been taking [id number] medications for her pain with moderate relief. She denies any fever, chills, sweats. Denies injury or trauma. She is able to manage own secretions, no drooling or stridor. Speaking in full sentences. No other complaints today Related Data Home Medications ?Medication ?Instructions ?Recorded ?Confirmed ?Last Taken ?Type elviteg 150 mg-cob 150 mg-emtricit 1 tablet PO DAILY 05/02/22 03/12/24 Unknown History 200 mg-tenofo alafenam 10 mg tablet (Genvoya) gabapentin 600 mg tablet 600 mg PO DAILY 05/02/22 03/12/24 Unknown History bupropion HCl 150 mg 24 hr tablet, mg PO 10/18/24 Unknown History extended release doravirine 100 mg-lamivudine 300 tablet PO 10/18/24 Unknown History mg-tenofovir disoproxil 300 mg tablet (Delstrigo) hydroxyzine HCl 10 mg tablet mg 10/18/24 Unknown History propranolol 20 mg tablet mg 10/18/24 Unknown History propranolol 60 mg capsule,24 mg PO 10/18/24 Unknown History hr,extended release Allergies Allergy/AdvReac Type Severity Reaction Status Date / Time morphine Allergy Intermediate Rash Verified 10/18/24 13:28 codeine Allergy Mild Rash Verified 10/18/24 13:28 hydroxyzine Allergy Mild NAUSEA Verified 10/18/24 13:28 Penicillins Allergy Mild RASH Verified 10/18/24 13:28 erythromycin base Allergy Unknown Swelling Verified 10/18/24 13:28 ZIPRASIDONE HCL Allergy Unknown Swelling Uncoded 03/12/24 08:50 of Lip/Tongue/Throat Review of Systems Review of Systems: All systems reviewed & are unremarkable except as noted in HPI and below Constitutional: Constitutional: Reports no additional constitutional complaints ENT: Reports system reviewed and no additional complaints, except as documented and Reports dental pain Cardiovascular: Cardiovascular: Reports no additional cardiovascular complaints Respiratory: Respiratory: Reports no additional respiratory complaints Gastrointestinal: Gastrointestinal: Reports no additional gastrointestinal complaints [facility] Past Medical History Medical History Bipolar disorder HIV (human immunodeficiency virus infection) Surgical History Surgical History History of appendectomy Comments At the time of my signature, I reviewed and agree with the nursing past medical, surgical, social, and family history. There is no relevant family history pertinent to the patient complaint. Exam Const: General: cooperative, no acute distress, alert and awake Orientation/consciousness: oriented to person, oriented to place and oriented to time HENMT: Head: normal to inspection Mouth: Yes moist mucous membranes Teeth and gingiva: gingiva abnormal with purulent discharge (left lower) and diffusely erythematous and poor dentition Throat: posterior oropharynx normal Resp: Effort & Inspection: normal respiratory effort and able to speak in complete sentences Auscultation: clear to auscultation bilaterally, no crackles, no rales, no rhonchi and no wheezes Cardio: Palpation: normal PMI Rate: regular rate Rhythm: regular rhythm Heart sounds: S1 normal heart sound present and S2 normal heart sound present Neuro: General: oriented to person, oriented to place and oriented to time Cranial nerves: Yes CN's II-XII intact bilaterally Psych: Appearance: grossly normal Thought process: Normal thought process present Insight: Good insight present (Psych) Judgement: Good judgement present (Psych) Course Course Level of Care: Express Care Visit Vital Signs Vital signs: Vital Signs Temperature 97.9 F 10/18/24 13:42 Pulse Rate 60 10/18/24 13:42 Respiratory Rate 18 10/18/24 13:42 Blood Pressure 141/87 H 10/18/24 13:42 Pulse Oximetry 100 10/18/24 13:42 Oxygen Delivery Room Air 10/18/24 13:42 Temperature 97.9 F 10/18/24 13:42 Pulse Rate 60 10/18/24 13:42 Respiratory Rate 18 10/18/24 13:42 Blood Pressure 141/87 H 10/18/24 13:42 Pulse Oximetry 100 10/18/24 13:42 Oxygen Delivery Room Air 10/18/24 13:42 Reviewed MDM - Dental/Oral MDM Narrative Medical decision making narrative: Patient with obvious dental infection. No drooling or stridor. She is advised to follow with dentist, she is nontoxic appearing, stable for discharge home on p.o. antibiotic therapy. Discharge instructions reviewed with patient, as well as provided in writing per nursing staff. The instructions also include specific and strict return/GO TO THE ER as well as f/u information. All questions have been answered, and the patient deny any further questions with discharge and discharge plan. Some parts of this dictation were generated by voice recognition software and may contain typographical and/or grammatical inaccuracies. Differential Diagnosis Differential diagnosis: Likely gingival abscess, dental caries and toothache Medical Records Attestation: I reviewed the patient's medical records. Discharge Plan Discharge Clinical Impression: Dental infection Patient Disposition: Home, Self-Care Condition: Stable Instructions: Antibiotic Form, Dental Abscess (ED) Additional Instructions: Follow-up with dentist without fail. Emergency department for new or worsening symptoms. Take medications as prescribed Patient Language: Swiss Prescriptions: New clindamycin HCl [Cleocin HCl] 300 mg capsule 300 mg PO TID Qty: 30 0RF No Action propranolol 60 mg capsule,extended release 24 hr PO propranolol 20 mg tablet hydroxyzine HCl 10 mg tablet bupropion HCl 150 mg tablet extended release 24 hr PO Delstrigo 100-300-300 mg tablet PO gabapentin 600 mg tablet 600 mg PO DAILY Genvoya [id number] mg tablet 1 tablet PO DAILY albuterol sulfate 90 mcg/actuation HFA aerosol inhaler 2 inh inhalation QID PRN (Reason: shortness of breath or wheezing) Qty: 8.5 0RF Follow-up/Referrals: [facility] [Primary Care Provider] - 2 Weeks Time of Disposition: 15:10
== END 2024-10-18 15:15 | disposition home or self-care (01) ==
PROVIDERS: Emergency Provider Nurse Practitioner Family
DX: K04.7 Periapical abscess without sinus (principal); Z21 Asymptomatic human immunodeficiency virus [HIV] infection status
CPT/HCPCS: 99213; G0463

== ENCOUNTER 2024-11-27 08:27 | Emergency (ER) | payer OTHER, SELFPAY ==
[2024-11-27 08:40] VITALS: BP 156/99; PULSE 74; RESP 19; TEMP 36.4; O2SAT 99
[2024-11-27 08:52] LABS: EDUAAPPEAR Cloudy; EDUABILI Negative (Negative); EDUABLOOD Negative (Negative); EDUACOLOR1 Yellow; EDUAGLUCOSE Negative (Negative); EDUAKETONE Negative (Negative); EDUALEUKO Negative (Negative); EDUANITRATE Negative (Negative); EDUAPH 6.5; EDUAPROTEIN Negative (Negative); EDUASPGRAVITY 1.025; EDUAUROBILI 0.2
--- NOTE | 2024-11-27 08:57 | ED_ITS ---
HPI - Female Genitourinary General Chief complaint: Urogenital-Female Stated complaint: UTI Time Seen by Provider: 11/27/24 08:43 Source: patient and RN notes reviewed Mode of arrival: ambulatory Limitations: no limitations History of Present Illness HPI Narrative: Patient presents today complaining of a 1-2 week history of minor lower abdominal cramping, urinary frequency and incomplete bladder emptying. Denies dysuria, fever, nausea or vomiting. She has tried some azo occasionally with very mild relief. History of appendectomy, cholecystectomy, HIV Related Data Home Medications ?Medication ?Instructions ?Recorded ?Confirmed ?Last Taken ?Type elviteg 150 mg-cob 150 mg-emtricit 1 tablet PO DAILY 05/02/22 03/12/24 Unknown History 200 mg-tenofo alafenam 10 mg tablet (Genvoya) gabapentin 600 mg tablet 600 mg PO DAILY 05/02/22 03/12/24 Unknown History bupropion HCl 150 mg 24 hr tablet, mg PO 10/18/24 Unknown History extended release doravirine 100 mg-lamivudine 300 tablet PO 10/18/24 Unknown History mg-tenofovir disoproxil 300 mg tablet (Delstrigo) hydroxyzine HCl 10 mg tablet mg 10/18/24 Unknown History propranolol 20 mg tablet mg 10/18/24 Unknown History propranolol 60 mg capsule,24 mg PO 10/18/24 Unknown History hr,extended release Allergies Allergy/AdvReac Type Severity Reaction Status Date / Time morphine Allergy Intermediate Rash Verified 11/27/24 08:31 codeine Allergy Mild Rash Verified 11/27/24 08:31 hydroxyzine Allergy Mild NAUSEA Verified 11/27/24 08:31 Penicillins Allergy Mild RASH Verified 11/27/24 08:31 erythromycin base Allergy Unknown Swelling Verified 11/27/24 08:31 ZIPRASIDONE HCL Allergy Unknown Swelling Uncoded 11/27/24 08:31 of Lip/Tongue/Throat Review of Systems Review of Systems: CONSTITUTIONAL: Denies body aches, fever, chills, or sweats. EYES: Denies visual changes, redness, or discharge. ENT: Denies rhinorrhea, congestion, sore throat, or otalgia. CARDIOVASCULAR: Denies chest pain, palpitations, or edema. RESPIRATORY: Denies cough or dyspnea. GASTROINTESTINAL: Denies abdominal pain, nausea, vomiting, or diarrhea. GENITOURINARY: + frequency, abdominal cramping SKIN: Denies rash, itching, or wounds. MUSCULOSKELETAL: Denies back pain, joint pain, or myalgia. NEUROLOGIC: Denies headache, numbness, tingling, or weakness. PSYCH: Denies depression or anxiety. [facility] Past Medical History Medical History (Updated 11/27/24 @ 09:02 by Ashley Jeter, [facility], ) Bipolar disorder HIV (human immunodeficiency virus infection) Surgical History Surgical History (Updated 11/27/24 @ 08:58 by Ashley Jeter, [facility], ) History of cholecystectomy History of appendectomy Comments At time of signature, I have reviewed and agree with nursing past medical, surgical, social and family history unless otherwise noted. Please see nursing chart for further information. There is no relevant family history pertinent to the presenting complaint Exam Narrative: GENERAL: Well-appearing, well-nourished, and in no acute distress. HEAD: Normocephalic, atraumatic. EYES: EOMI. No redness or drainage. Conjunctivae normal. ENT: Mucous membranes pink and moist. NECK: Normal AROM. CHEST: No respiratory distress. Clear to auscultation. HEART: Regular rate and rhythm. No murmur appreciated. ABDOMEN: Soft, nontender, nondistended, normal active bowel sounds. EXTREMITIES: Normal range of motion. No edema. SKIN: Warm, dry, no rash. Capillary refill normal. Normal skin turgor. NEURO: No focal deficits. Alert and oriented x3. Gait steady. PSYCH: Normal affect. No signs of depression or anxiety. Course Course Level of Care: Express Care Visit Vital Signs Vital signs: Vital Signs Temperature 97.5 F L 11/27/24 08:40 Pulse Rate 74 11/27/24 08:40 Respiratory Rate 11/27/24 08:40 Blood Pressure 156/99 H 11/27/24 08:40 Pulse Oximetry 99 11/27/24 08:40 Oxygen Delivery Room Air 11/27/24 08:40 Temperature 97.5 F L 11/27/24 08:40 Pulse Rate 74 11/27/24 08:40 Respiratory Rate 19 11/27/24 08:40 Blood Pressure 156/99 H 11/27/24 08:40 Pulse Oximetry 99 11/27/24 08:40 Oxygen Delivery Room Air 11/27/24 08:40 Reviewed MDM - Female Genitourinary MDM Narrative Medical decision making narrative: urinalysis is not consistent with acute infection. Culture pending. Patient will not be started on antibiotics at this time. If culture comes back negative, patient will follow-up with her OBGYN for further evaluation. Agrees with plan. Anticipatory guidance given. Differential Diagnosis Differential diagnosis: Likely urinary tract infection, vaginitis, cystitis and other (Interstitial cystitis) Lab Data Attestation: I reviewed the patient's lab results. Labs: Lab Results 11/27/24 Range/Units 08:49 POC Urine Color Yellow POC Urine Clarity Cloudy POC Urine pH 6.5 POC Ur Specif [place] 1.025 POC Urine Protein Negative (Negative) POC Ur Glucose (UA) Negative (Negative) POC Urine Ketones Negative (Negative) POC Urine Blood Negative (Negative) POC Urine Nitrite Negative (Negative) POC Urine Bilirubin Negative (Negative) POC Urine Urobilinogen 0.2 POC U Leukocyte Esteras Negative (Negative) Critical Care Time Critical Care Time Critical Care Time: No Discharge Plan Discharge Clinical Impression: Lower urinary tract symptoms Patient Disposition: Home, Self-Care Condition: Stable Additional Instructions: your urinalysis is negative for infection today. Your urine will be sent to the hospital for urine culture. If it comes back positive for infection you will be notified by telephone and appropriate antibiotics will be called in for you at that time. The culture is negative, please follow-up with your PCP or OBGYN for further evaluation, if symptoms persist. As discussed, if symptoms worsen to include fever, severe abdominal or back pain, nausea or vomiting, please go to the ER immediately for further evaluation. Your blood pressure was elevated above 120/80 today at Urgent Care. This puts you above the threshold for follow up. Please schedule a followup visit with your personal physician as soon as possible, for further evaluation and treatment. Even blood pressure exceeding 120/80 may indicate pre-hypertension. Patient Language: German Prescriptions: No Action propranolol 60 mg capsule,extended release 24 hr PO propranolol 20 mg tablet hydroxyzine HCl 10 mg tablet bupropion HCl 150 mg tablet extended release 24 hr PO Delstrigo 100-300-300 mg tablet PO gabapentin 600 mg tablet 600 mg PO DAILY Genvoya [phone] mg tablet 1 tablet PO DAILY albuterol sulfate 90 mcg/actuation HFA aerosol inhaler 2 inh inhalation QID PRN (Reason: shortness of breath or wheezing) Qty: 8.5 0RF Follow-up/Referrals: Tommy,Melissa Montelongo [Primary Care Provider] - Time of Disposition: 09:02
== END 2024-11-27 09:15 | disposition home or self-care (01) ==
PROVIDERS: Emergency Provider Nurse Practitioner; PCP Internal Medicine Infectious Disease
DX: R35.0 Frequency of micturition (principal); R10.30 Lower abdominal pain, unspecified; R33.9 Retention of urine, unspecified; Z21 Asymptomatic human immunodeficiency virus [HIV] infection status
CPT/HCPCS: 81003; 87086; 99213; G0463